=== PATIENT | male | born 1960 | race Caucasian/White ===

== ENCOUNTER 2016-11-30 11:21 | Emergency (ER) | payer OTHER ==
[~2016-11-30] VITALS: Ht 182.9 cm; Wt 86.4 kg
[~2016-11-30 11:21] MED LIST: CALC600T12 PO; FISH1CAP29 PO; LORA10CA3 PO; MULT-806 PO
[2016-11-30 11:24] VITALS: TEMP 98.2; Ht 182.9 cm; Wt 86.4 kg
--- OUTSIDE RECORDS SUMMARY | 2016-11-30 11:26 | XMS REPORT | Summary of Care ---
Author Author Rich Sharma M.D. 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 * Started 23-Jun-2015 ActiveFish Oil 1000 MG Oral Capsule TAKE 1 CAPSULE DAILY. * Refills: 0 * Started 23-Jun-2015 ActiveCalcium 600 MG Oral Tablet TAKE 1 TABLET DAILY. * Refills: 0 * Started -Jun-2015 Active Allergies and Adverse Reactions Name Dates Details Penicillins Status: Active Past Medical History Name Dates Details History of allergic rhinitis (V12.69, Z87.09) Status: Resolved History of Elevated PSA (790.93, R97.2) Status: Resolved History of malignant neoplasm of prostate (V10.46, Z85.46) Status: Resolved Procedures Procedure Dates Details History of Tonsillectomy History of Biopsy Of The Prostate Needle History of Prostatectomy Radical PSA ( PROSTATE SPECIFIC ANTIGEN) 3100 Ordered:28-Aug-2015 Immunization Name Dates Details Immunizations not documented Family History Unknown Family Member* Name Dates Details Family history of No history of kidney disease Comments: Family History Status: Active Mother* Name Dates Details Family history of malignant neoplasm of stomach (V16.0, Z80.0) Status: Active Father* Name Dates Details Family history of malignant neoplasm (V16.9, Z80.9) Status: Active Social History Name Dates Details Smoking Status* Smoker. current status unknown Vital Signs Date Test Result Details 28-Aug-2015 08:14 BP Systolic 132 mm[Hg] Status: BP Diastolic 79 mm[Hg] Status: Heart Rate 62 /min Status: Height 72 in Status: Weight 185 lb Status: Body Mass Index Calculated 25.09 kg/m2 Status: Body Surface Area Calculated 2.06 m2 Status: Results Date Description Value Details Results not documented Plan of Care Planned Observations* Name Dates Details Planned Goals not documented Goal Planned Encounters* Appointment; Provider: Rich Sharma On 26-Feb-2016 08:15 Instructions * Instructions not documented Encounters Appointment; Rich Sharma Encounter Diagnosis: Problem not documented On 28-Aug-2015 08:15
--- OUTSIDE RECORDS SUMMARY | 2016-11-30 11:26 | XMS REPORT | Summary of Care ---
Author Author Rich Sharma M.D. Unknown Address [address] [place] [address] [place] [address] Phone Unavailable Care Team Providers Care Motorcycle Fabricator Name Role Phone Tamanna Nguyen IVON Unavailable [...] The Prostate Needle History of Prostatectomy Radical Procedures not documented Immunization Name Dates Details Immunizations not documented [...] m2 Status: Results Date Description Value Details 28-Aug-2015 14:39 PSA ( PROSTATE SPECIFIC ANTIGEN) 3100 PROSTATE SPECIFIC ANTIGEN 0.040 ng/mL (Better) Range: 0.000-4.000 Plan of Care Planned Observations* Name Dates Details Planned Goals not documented Goal Planned Encounters* Appointment; Provider: Rich Sharma On 26-Feb-2016 08:15 Instructions * Instructions not documented Encounters Appointment; Rich Sharma Encounter Diagnosis: Problem not documented On 28-Aug-2015 08:15
--- OUTSIDE RECORDS SUMMARY | 2016-11-30 11:26 | XMS REPORT | Summary of Care ---
Author Author Rich Sharma M.D. Unknown Address [address] [place] [address] [place] [address] Phone Unavailable Care Team Providers Care Powder Blender And Pourer Name Role Phone Tamanna Nguyen IVON Unavailable [...]
--- OUTSIDE RECORDS SUMMARY | 2016-11-30 11:26 | XMS REPORT | Summary of Care ---
Author Author Rich Sharma M.D. Unknown Address [address] [place] [address] [place] [address] Phone Unavailable Care Team Providers Care Restaurant Front Manager Name Role Phone Rich Sharma M.D. 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 * Start -Jun-2015 Active Fish Oil 1000 MG Oral Capsule TAKE 1 CAPSULE DAILY. * Refills: 0 * Start -Jun-2015 Active Calcium 600 MG Oral Tablet TAKE 1 TABLET DAILY. * Refills: 0 * Start -Jun-2015 Active Allergies and Adverse Reactions Name Dates Details Penicillins (Allergy) Status: Active Past Medical History Name Dates Details History of allergic rhinitis (V12.69, Z87.09) Status: Resolved History of Elevated PSA (790.93, R97.2) Status: Resolved History of malignant neoplasm of prostate (V10.46, Z85.46) Status: Resolved Procedures Procedure Dates Details History of Tonsillectomy History of Biopsy Of The Prostate Needle History of Prostatectomy Radical PSA ( PROSTATE SPECIFIC ANTIGEN) 3100 Ordered: 26-Feb-2016 Immunization Name Dates Details Immunizations not documented Family History Name Dates Details Family history of No history of kidney disease Comments: Family History Status: Active Name Dates Details Family history of malignant neoplasm of stomach (V16.0, Z80.0) Status: Active Name Dates Details Family history of malignant neoplasm (V16.9, Z80.9) Status: Active Social History Name Dates Details - Status: Name Dates Details Smoker. current status unknown Vital Signs Date Test Result Details 26-Feb-2016 08:06 BP Systolic 125 mm[Hg] Status: Comments: Location: ; Position: BP Diastolic 83 mm[Hg] Status: Comments: Location: ; Position: Heart Rate 71 /min Status: Comments: Location: ; Height 72 in Status: Weight 185 lb Status: Body Mass Index Calculated 25.09 kg/m2 Status: Body Surface Area Calculated 2.06 m2 Status: Results Date Description Value Details Results not documented Plan of Care Name Dates Details Planned Observations Planned Goals not documented Planned Encounters Appointment; Provider: Rich Sharma M.D. On 02-Sep-2016 08:00 Interventions Provided Labs/Procedures/Imaging* PSA ( PROSTATE SPECIFIC ANTIGEN) 3100; To be Done: 26 Feb 2016 Instructions Name Dates Details Instructions not documented Encounters Appointment; Rich Sharma M.D. Encounter Diagnosis: Problem not documented On 28-Aug-2015 08:15
--- OUTSIDE RECORDS SUMMARY | 2016-11-30 11:26 | XMS REPORT | Summary of Care ---
Author Author Rich Sharma M.D. Unknown Address [address] [place] [address] [place] [address] Phone Unavailable Care Team Providers Care Mission Assessment Specialist Name Role Phone Rich Sharma M.D. Unavailable [...]
--- OUTSIDE RECORDS SUMMARY | 2016-11-30 11:26 | XMS REPORT | Summary of Care ---
Author Author Rich Sharma M.D. Organization Unknown Address [address] [place] [address] [place] [address] Phone Unavailable Care Team Providers Care Rn Admissions Name Role Phone Rich Sharma M.D. 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 * Start -Jun-2015 Active Fish Oil 1000 MG Oral Capsule TAKE 1 CAPSULE DAILY. * Refills: 0 * Start 23-Jun-2015 Active Calcium 600 MG Oral Tablet TAKE 1 TABLET DAILY. * Refills: 0 * Start -Jun-2015 Active Garlic 400 MG Oral Tablet TAKE DIRECTED. * Refills: 0 Rich Sharma M.D. 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, N52.9) Status: Resolved History of malignant neoplasm of [...] unknown Vital Signs Date Test Result Details 16-Sep-2016 08:18 BP Systolic 120 mm[Hg] Status: Comments: Location: ; Position: BP Diastolic 98 mm[Hg] Status: Comments: Location: ; Position: Heart Rate 65 /min Status: Comments: Location: ; Height 72 in Status: Weight 185 lb Status: Body Mass Index Calculated 25.09 kg/m2 Status: Body Surface Area Calculated 2.06 m2 Status: Results Date Description Value Details Results not documented Plan of Care Name Dates Details Planned Observations Planned Goals not documented Planned Encounters Appointment; Provider: Rich Sharma M.D. On 20-Sep-2017 08:00 Instructions Name Dates Details Instructions not documented Encounters Appointment; Rich Sharma M.D. Encounter Diagnosis: Problem not documented On 02-Sep-2016 08:00 Appointment; Rich Sharma M.D. Encounter Diagnosis: Problem not documented On 26-Feb-2016 08:15 Appointment; Rich Sharma M.D. Encounter Diagnosis: Problem not documented On 28-Aug-2015 08:15
--- OUTSIDE RECORDS SUMMARY | 2016-11-30 11:26 | XMS REPORT | Summary of Care ---
Author Author Rich Sharma M.D. Unknown Address [address] [place] [address] [place] [address] Phone Unavailable Care Team Providers Care Director Of Product Design Name Role Phone Tamanna Nguyen Unavailable Unavailable Functional Status Name [...] m2 Status: Results Date Description Value Details 26-Feb-2016 16:06 PSA ( PROSTATE SPECIFIC ANTIGEN) 3100 PROSTATE SPECIFIC ANTIGEN 0.030 ng/mL Range: 0.000-4.000 Comments: Variance from previous testing noted.----- Plan of Care Name Dates Details Planned Observations Planned Goals not documented Planned Encounters Appointment; Provider: Rich Sharma M.D. On 02-Sep-2016 08:00 Instructions Name Dates Details Instructions not documented Encounters Appointment; Rich Sharma M.D. Encounter Diagnosis: Problem not documented On 26-Feb-2016 08:15 Appointment; Rich Sharma M.D. Encounter Diagnosis: Problem not documented On 28-Aug-2015 08:15
--- OUTSIDE RECORDS SUMMARY | 2016-11-30 11:26 | XMS REPORT | Summary of Care ---
Author Author Rich Sharma M.D. Organization Unknown Address [address] [place] [address] [place] [address] Phone Unavailable Care Team Providers Care Floor Steward/Stewardess Name Role Phone Rich Sharma M.D. Unavailable [...] Capsule TAKE 1 CAPSULE DAILY. * Start 23-Jun-2015 Active Fish Oil 1000 MG Oral Capsule TAKE 1 CAPSULE DAILY. * Refills: 0 * Start 23-Jun-2015 Active Calcium 600 MG Oral Tablet TAKE 1 TABLET DAILY. * Refills: 0 * Start -Jun-2015 Active Garlic 400 MG Oral Tablet TAKE DIRECTED. * Refills: 0 Rich Sharma M.D. * Start 16-Sep-2016 Active Allergies and Adverse Reactions Name Dates [...] Prostate Needle History of Prostatectomy Radical PSA (Reflex To Free) 497424 Ordered: 16-Sep-2016 Immunization Name Dates Details Immunizations not documented [...] Provider: Rich Sharma M.D. On 20-Sep-2017 08:00 Interventions Provided Labs/Procedures/Imaging* PSA (Reflex To Free) 374375; To be Done: 16 Sep 2016 Instructions Name Dates Details Instructions not documented Encounters Appointment; Rich Sharma M.D. Encounter Diagnosis: Problem not documented On 02-Sep-2016 08:00 Appointment; Rich Sharma M.D. Encounter Diagnosis: Problem not documented On 26-Feb-2016 08:15 Appointment; Rich Sharma M.D. Encounter Diagnosis: Problem not documented On 28-Aug-2015 08:15
--- OUTSIDE RECORDS SUMMARY | 2016-11-30 11:26 | XMS REPORT | Summary of Care ---
Author Author Rich Sharma M.D. Organization Unknown Address [address] [place] [address] [place] [address] Phone Unavailable Care Team Providers Care Street Roller Engineer Name Role Phone Rich Sharma M.D. Unavailable [...] m2 Status: Results Date Description Value Details 16-Sep-2016 14:32 PSA ( PROSTATE SPECIFIC ANTIGEN) 3100 Comments: Items were attached to this order: ACTUARIAL SCIENCE TEACHER Charge PROSTATE SPECIFIC ANTIGEN 0.040 ng/mL Range: 0.000-4.000 Comments: Variance from previous testing noted.----- Plan of Care Name Dates Details Planned Observations Planned Goals not documented Planned Encounters Appointment; Provider: Rich Sharma M.D. On 20-Sep-2017 08:00 Instructions Name Dates Details Instructions not documented Encounters Appointment; Rich Sharma M.D. Encounter Diagnosis: Problem not documented On 16-Sep-2016 08:30 Appointment; Rich Sharma M.D. Encounter Diagnosis: Problem not documented On 02-Sep-2016 08:00 Appointment; Rich Sharma M.D. Encounter Diagnosis: Problem not documented On 26-Feb-2016 08:15 Appointment; Rich Sharma M.D. Encounter Diagnosis: Problem not documented On 28-Aug-2015 08:15
[2016-11-30] MEDS ORDERED: GARL1TAB PO (11:38)
[2016-11-30] MEDS ORDERED: RABIES IMMUNE GLOBULIN 300 UNIT/2 ML IM ONE (12:15)
[2016-11-30] MEDS ORDERED: RABIES VACCINE IM ONE (12:30)
--- NOTE | 2016-11-30 12:58 | ERPDOC ---
Departure Disposition Decision Date: November 30, 2016 Disposition Decision Time: 13:04 (TEZ TRUONG DO) Disposition: 01 DISCHARGED HOME, SELF-CARE Impression Impression (TEZ TRUONG DO) Impression: Primary Impression: Rabies exposure Severity: Mild (TEZ TRUONG DO) Condition: Improved Seen By: Physician only (TEZ TRUONG DO) Seen By: Physician and Mid-level (NADIA ULRICH APRN) Referrals: ALESHIA MCBRIDE DO (PCP) As needed Patient Instructions: Animal Bite (ED), Rabies Vaccine (ED) Problems/Meds/Labs Reviewed?: Yes Medications reviewed and manag: Yes (TEZ TRUONG DO) Additional Instructions: 1. Keep Wound Clean and Dry 2. Return to the ER for addtional doses of Rabies Vaccine on December 03, December 07 , and December 14 3. Motrin or Tylenol for pain 4. Return to the ER as needed Follow up care ordered?: Yes Mental Status: Alert, Oriented (TEZ TRUONG DO) HPI - Skin General General Chief Complaint: Animal Bite Stated Complaint: RACOON BITE ON RIGHT HAND Time Seen by Provider: 11:59 Source: patient (Patient presents to the ER after being bitten by a Raccoon last night. Patient has small abrasion to the Posterior aspect of his right hand without bleeding or erythema) Exam Limitations: no limitations (TEZ TRUONG DO) Time Seen by Provider: 12:45 (NADIA ULRICH APRN) HPI - Skin General Occurred At: home Duration: 12-24 hrs Pain Scale: Now: 0/10, Worst: Unable to Rate Severity: mild Location: hands Possible Cause: other (Animal Bite) Associated Symptoms: other Hx of Similar Symptoms: Yes (TEZ TRUONG DO) Allergies: Coded Allergies: Penicillins (Verified Allergy, Unknown, 'BREAKS OUT', 11/30/16) Past History Past Medical History Pt denies signifigant PMH Hx Echocardiogram: No (TEZ TRUONG DO) Surgical History Denies Surgeries (TEZ TRUONG DO) Family History Family History: Negative (TEZ TRUONG DO) Social History Smoking Status: Never smoker Does patient use chewing tobac: No Second Hand Exposure: No Substance Use Type: does not use Alcohol Intake: none Marital Status: Sexuality: female partner Housing: house Household Members: spouse Service: No Current Occupational Status: employed Occupational Hazard: No Advance Directives: Yes Full Code (TEZ TRUONG DO) Record Review Pertinent history updated: Yes (BHAVIK TRUONGIN DO) Review of Systems Constitutional Constitutional: DENIES: chills, fever (ALEXI,TEZ DO) Eyes Lids/Accessories: DENIES: erythema, swelling (ALEXI,TEZ DO) ENMT Ears: DENIES: pain Balance: DENIES: ataxia, vertigo Sinuses: DENIES: congestion, rhinorrhea Mouth/Throat: DENIES: sore throat (ALEXI,TEZ DO) Cardiovascular Cardiac: DENIES: chest pain, dyspnea on exertion, orthopnea Rhythm/Rate: DENIES: tachycardia (ALEXI,TEZ DO) Pulmonary Respiratory: DENIES: cough, dyspnea, sputum (ALEXI,TEZ DO) GI Upper Abdomen: DENIES: nausea, pain, vomiting Lower Abdomen: DENIES: constipation, diarrhea, pain (ALEXI,TEZ DO) General: DENIES: dysuria (ALEXI,TEZ DO) Musculoskeletal General: DENIES: cramps, pain, weakness (ALEXI,TEZ DO) Integumentary Skin: color change, see HPI, DENIES: itching, rash (ALEXI,TEZ DO) Neurological General: DENIES: ataxia, change in strength, headache, numbness, poor coordination, seizures, syncope, vertigo, weakness (ALEXI,TEZ DO) Psychiatric Psychiatric: DENIES: anxiety, depression, nervousness (ALEXI,TEZ DO) Hematologic/Lymphatic Hematologic/Lymphatic: DENIES: anemia (ALEXI,TEZ DO) Allergic/Immunological Allergic/Immunoligical: DENIES: sneezing (ALEXI,TEZ DO) All other Systems All Other Systems: Reviewed and Negative (ALEXI,TEZ DO) Physical Exam General General Nourishment: well nourished, well developed, appears stated age, adult General Body Habitus: well groomed (ALEXI,TEZ DO) Vitals and Pain First Documented Vital Signs Date Time Temp Pulse Resp B/P Pulse Ox O2 Delivery O2 Flow Rate FiO2 11/30/16 11:24 98.2 71 16 144/88 97 Room Air (NADIA ULRICH APRN) Vitals and Pain Weight: Kilograms: 86.400 Height (feet): 6 Height (inches): 0 Triage Pain Scale: (TEZ TRUONG DO) RN VS reviewed by Provider: Yes (ALEXIBHAVIKTEZ DO) Eyes (brief) Eyes Brief: found: EOMI, PERRL (ALEXI,TEZ DO) ENMT (brief) ENMT Brief: FOUND: mucosa moist (ALEXI,TEZ DO) Neck (brief) Neck: FOUND: trachea midline, NOT FOUND: tracheal deviation (ALEXI,TEZ DO) Respiratory (brief) Respiratory: FOUND: clear all sosa, equal bilaterally (ALEXI,TEZ DO) Cardiovascular (brief) Cardiac: FOUND: regular rate, regular rhythm Capillary Refill: <2 sec Pulses: all distal extremities, equal, strong (ALEXI,TEZ DO) Abdomen (brief) Abdominal Brief: FOUND: bowel normo active x4, soft, NOT FOUND: distended, tender (ALEXI,TEZ DO) Lymphatic (brief) Lymphatic Brief: NOT FOUND: adenopathy (ALEXI,TEZ DO) Musculoskeletal (brief) Musculoskeletal Brief: NOT FOUND: spasm, tenderness (ALEXI,TEZ DO) Integumentary (brief) Integumentary Brief: FOUND: other (refer to HPI), pink, warm (ALEXI,TEZ DO) Neurologic (brief) Neurological Brief: FOUND: CN w/o gross def to obs, gait w/o gross def to obs, motor-no gross deficits, sensory-no gross deficits, NOT FOUND: ataxia (ALEXI TEZ DO) Psychiatric (brief) Psychiatric Brief: FOUND: alert, attentive, normal affect, oriented (ALEXI, TEZ DO) Differential Diagnoses Considering: Abrasion, Bite, Cellulitis, Puncture, Other (ALEXI,TEZ DO) Progress Results/Orders Orders Procedure Category Date Status Time Rabies Immune PHA 11/30/16 Complete Globulin (Hyperrab) 12:15 Rabies Vaccine PHA 11/30/16 Complete (Imovax) 12:30 (NADIA ULRICH APRN) Medications Current ED Medications Rabies Immune Globulin (Hyperrab) 1,728 unit O ONCE IM Last administered on t 13:05; Start 11/30/16 at 12:15; Stop 11/30/16 at 12:16; Status DC Rabies Vaccine Human Diploid Cell (Imovax) 2.5 unit O ONCE IM Last administered on 11/30/16t 13:12; Start 11/30/16 at 12:30; Stop 11/30/16 at 12:31 ; Status DC (NADIA ULRICH APRN) Progress Progress 3mls of rabies immune globulin infiltrated around wound on dorsum of right hand. Patient tolerated procedure well. (NADIA ULRICH APRN) TEZ TRUONG DO November 30, 2016 12:58 NADIA ULRICH APRN November 30, 2016 13:15
[2016-11-30 13:18] VITALS: BP 130/82; PULSE 71; RESP 16; O2SAT 99
--- NOTE | 2016-11-30 13:18 | NUR ---
DISCHARGE WRITTEN INSTRUCTIONS REGARDING WOUND CARE AND F/U DATES WITH INFUSION THERAPY FOR SUBSEQUENT DOSING REVIEWED AND SENT WITH PT. PT VERBALIZES UNDERSTANDING OF DI, DENIES QUESTIONS. PT AMBULATES OUT OF ER WITH STEADY GAIT AT THIS TIME.
== END 2016-11-30 13:18 | disposition home or self-care (01) ==
LOC: ED 11:21
DX: S61.451A Open bite of right hand, initial encounter (principal); Z20.3 Contact with and (suspected) exposure to rabies; W55.51XA Bitten by raccoon, initial encounter; Y93.9 Activity, unspecified; Y92.009 Unspecified place in unspecified non-institutional (private) residence as the place of occurrence of the external cause; Y99.8 Other external cause status
CPT/HCPCS: 90376; 90471; 90675; 96372